=== PATIENT | male | born 1955 | race Caucasian/White ===

== ENCOUNTER 2020-11-15 21:17 | Emergency (ER) | payer OTHER ==
[2020-11-15 22:23] LABS: BLOOD UREA NITROGEN,BUN 13 mg/dL (7.0-18.0); CARBON DIOXIDE,CO2 24.4 mmol/L (21.0-32.0); CHLORIDE,CL 105 mmol/L (98-107); GLUCOSE RANDOM 114 mg/dL (74-106); POTASSIUM,K 3.9 mmol/L (3.5-5.1); SODIUM,NA 140 mmol/L (136-148)
--- NOTE | 2020-11-15 22:40 | EDM.PDOC ---
ED HPI GENERAL MEDICAL PROBLEM - General Chief Complaint: Lower Extremity Injury/Pain Stated Complaint: LT LEG PAIN FROM KNEE DOWN Time Seen by Provider: 11/15/20 22:01 Source of Information: Reports: Patient - History of Present Illness INITIAL COMMENTS - FREE TEXT/NARRATIVE: History of present illness: 65-year-old male presenting with left leg pain. Woke him up from sleep at 5 AM yesterday. Pain has been ongoing since that time. Pain located primarily in the calf and radiates down the leg. He does report he also feels numbness in the left foot and that the whole leg is cool to touch. No prior history of the same. He does travel a lot for work and just flew from [place] back here several days ago. No chest pain or difficulty breathing. Review of systems: As per history of present illness and below otherwise all systems reviewed and negative. Past medical history: As per history of present illness and as reviewed below otherwise noncontributory. Surgical history: As per history of present illness and as reviewed below otherwise noncontributory. Social history: No reported history of drug or alcohol abuse. Daily tobacco Family history: As per history of present illness and as reviewed below otherwise noncontributory. Physical exam: GEN: no acute distress, well appearing HEENT: Atraumatic, normocephalic, mucous membranes moist, Neck: supple, nontender, trachea midline. Lungs: No respiratory distress. Heart: RRR Abdomen: Nondistended Back: Full range of motion Extremities: Atraumatic. Calf tenderness. Pain in the calf worse with plantar and dorsiflexion of the foot. Distal pulses are intact. The patient reports decreased sensation over the left foot plantar surface although does feel sharp touch well. Decreased sensation to soft touch. Mildly diminished cap refill time over the left toes. No pallor of the skin of the left lower extremity. Appears pink and same color as the right lower extremity. The right lower extremity is unremarkable and warm to touch. Neuro: Awake, alert, oriented. Neuro Exam nonfocal. Mild decreased soft touch sensation to the left plantar surface of the foot Skin: dry, no lesions Diagnostics: Labs, CT angio left lower extremity Preliminary Report: Atherosclerotic changes of the distal abdominal aorta. Moderate stenosis of the left common iliac artery. Occlusion of the left external iliac artery from its origin to its midpoint. Severe narrowing of the left BI ARCHITECT with thread-like lumen. Mild diffuse narrowing of the left SFA throughout the upper and mid thigh, with occlusion of the distal SFA and popliteal artery to the level of the calf trifurcation. Weakly reconstituted flow in the left calf trifurcation arteries, with minimal flow in the anterior tibial artery at the level of the ankle. Therapeutics: Heparin, bolus and drip MDM: Leg pain. Cool to touch when compared to the other although distal pulses intact. CTA shows diffuse atherosclerotic disease and several areas of stenosis including occlusion distally though there does appear to be some reconstitution. While in the emergency department the patient had a change in his physical exam, on a reassessment the patient had decreased pulses were previously he had both palpable and dopplerable pulses on arrival here, on reassessment the patient had neither dopplerable or palpable pulses. The patient was already undergoing transfer for vascular surgery evaluation, however he was upgraded to rapid transport/air ambulance due to concern for acute limb ischemia. Vascular surgeon updated immediately on the patient's change in status. Impression: Lower extremity arterial stenosis/occlusion, limb ischemia Plan: [] Definitive disposition and diagnosis as appropriate pending reevaluation and review of above. 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 L calf Pain Score (Numeric/FACES): 4 - Related Data Allergies Allergy/AdvReac Type Severity Reaction Status Date / Time No Known Allergies Allergy Verified 11/15/20 21:32 Home Meds: Home Meds Ibuprofen 400 mg PO ASDIRECTED PRN 11/15/20 [History] Past Medical History HEENT History: Reports: None Cardiovascular History: Reports: None Respiratory History: Reports: None Gastrointestinal History: Reports: None Genitourinary History: Reports: None Musculoskeletal History: Reports: None Neurological History: Reports: None Psychiatric History: Reports: None Endocrine/Metabolic History: Reports: None Hematologic History: Reports: None Immunologic History: Reports: None Oncologic (Cancer) History: Reports: None Dermatologic History: Reports: None - Infectious Disease History Infectious Disease History: Reports: Chicken Pox, Measles - Past Surgical History Head Surgeries/Procedures: Reports: None HEENT Surgical History: Reports: Other (See Below) Other HEENT Surgeries/Procedures: bone graph to L eye orbital after injury in 1979 Social & Family History - Family History Family Medical History: No Pertinent Family History - Tobacco Use Tobacco Use Status *Q: Current Every Day Tobacco User Years of Tobacco use: 10 Packs/Tins Daily: 0.5 - Caffeine Use Caffeine Use: Reports: Coffee, Soda - Recreational Drug Use Recreational Drug Use: Yes Drug Use in Last 12 Months: Yes Recreational Drug Type: Reports: Marijuana/Hashish Recreational Drug Use Frequency: Rarely Review of Systems - Review of Systems Review Of Systems: See Below (See dictation) ED EXAM, GENERAL - Physical Exam Exam: See Below (See dictation) Course - Vital Signs Last Recorded V/S: Last Vital Signs Temp 97.6 F 11/16/20 02:24 Pulse 54 L 11/16/20 02:24 Resp 18 11/16/20 02:24 BP 171/84 H 11/16/20 02:24 Pulse Ox 97 11/16/20 02:24 - Orders/Labs/Meds Labs: Laboratory Tests 11/15/20 11/15/20 11/15/20 Range/Units 21:54 21:54 21:54 WBC 9.33 (4.0-11.0) K/uL RBC 4.30 L (4.50-5.90) M/uL Hgb 15.5 (13.0-17.0) g/dL Hct 43.9 (38.0-50.0) % MCV 102.1 H (80.0-98.0) fL MCH 36.0 H (27.0-32.0) pg MCHC 35.3 (31.0-37.0) g/dL RDW Std Deviation 52.5 (28.0-62.0) fl RDW Coeff of Won 14 (11.0-15.0) % Plt Count 263 (150-400) K/uL MPV 10.10 (7.40-12.00) fL Neut % (Auto) 59.1 (48.0-80.0) % Lymph % (Auto) 24.5 (16.0-40.0) % Motley % (Auto) 12.4 (0.0-15.0) % Eos % (Auto) 3.6 (0.0-7.0) % Baso % (Auto) 0.4 (0.0-1.5) % Neut # (Auto) 5.5 (1.4-5.7) K/uL Lymph # (Auto) 2.3 (0.6-2.4) K/uL Motley # (Auto) 1.2 H (0.0-0.8) K/uL Eos # (Auto) 0.3 (0.0-0.7) K/uL Baso # (Auto) 0.0 (0.0-0.1) K/uL Nucleated RBC % 0.0 /100WBC Nucleated RBCs # 0 K/uL INR 1.02 APTT (18.6-31.3) SEC Sodium 140 (136-148) mmol/L Potassium 3.9 (3.5-5.1) mmol/L Chloride 105 (98-107) mmol/L Carbon Dioxide 24.4 (21.0-32.0) mmol/L BUN 13 (7.0-18.0) mg/dL Creatinine 1.0 (0.8-1.3) mg/dL Est Cr Clr Drug Dosing 82.99 mL/min Estimated GFR (MDRD) > 60.0 ml/min Glucose 114 H (74-106) mg/dL Calcium 8.6 (8.5-10.1) mg/dL Total Bilirubin 0.2 (0.2-1.0) mg/dL AST 45 H (15-37) IU/L ALT 21 (14-63) IU/L Alkaline Phosphatase 86 (46-116) U/L Total Protein 7.4 (6.4-8.2) g/dL Albumin 3.8 (3.4-5.0) g/dL Globulin 3.6 (2.6-4.0) g/dL Albumin/Globulin Ratio 1.1 (0.9-1.6) 11/16/20 Range/Units 02:25 WBC (4.0-11.0) K/uL RBC (4.50-5.90) M/uL Hgb (13.0-17.0) g/dL Hct (38.0-50.0) % MCV (80.0-98.0) fL MCH (27.0-32.0) pg MCHC (31.0-37.0) g/dL RDW Std Deviation (28.0-62.0) fl RDW Coeff of Won (11.0-15.0) % Plt Count (150-400) K/uL MPV (7.40-12.00) fL Neut % (Auto) (48.0-80.0) % Lymph % (Auto) (16.0-40.0) % Motley % (Auto) (0.0-15.0) % Eos % (Auto) (0.0-7.0) % Baso % (Auto) (0.0-1.5) % Neut # (Auto) (1.4-5.7) K/uL Lymph # (Auto) (0.6-2.4) K/uL Motley # (Auto) (0.0-0.8) K/uL Eos # (Auto) (0.0-0.7) K/uL Baso # (Auto) (0.0-0.1) K/uL Nucleated RBC % /100WBC Nucleated RBCs # K/uL INR APTT 23.7 (18.6-31.3) SEC Sodium (136-148) mmol/L Potassium (3.5-5.1) mmol/L Chloride (98-107) mmol/L Carbon Dioxide (21.0-32.0) mmol/L BUN (7.0-18.0) mg/dL Creatinine (0.8-1.3) mg/dL Est Cr Clr Drug Dosing mL/min Estimated GFR (MDRD) ml/min Glucose (74-106) mg/dL Calcium (8.5-10.1) mg/dL Total Bilirubin (0.2-1.0) mg/dL AST (15-37) IU/L ALT (14-63) IU/L Alkaline Phosphatase (46-116) U/L Total Protein (6.4-8.2) g/dL Albumin (3.4-5.0) g/dL Globulin (2.6-4.0) g/dL Albumin/Globulin Ratio (0.9-1.6) Meds: Medications Discontinued Medications Generic Name Dose Route Start Last Admin Trade Name Freq PRN Reason Stop Dose Admin Heparin Sodium (Porcine) 5,000 units 11/16/20 01:58 11/16/20 02:41 Heparin Sodium 5,000 Units/Ml Vial IVPUSH 11/16/20 01:59 Not Given ONETIME ONE Heparin Sodium (Porcine) 9,000 units 11/16/20 02:22 11/16/20 02:35 Heparin Sodium 5,000 Units/Ml Vial IVPUSH 11/16/20 02:23 9,000 units .BOLUS ONE Administration Heparin Sodium (Porcine) Confirm 11/16/20 02:30 11/16/20 02:41 Heparin Sodium 5,000 Units/Ml Vial Administered 11/16/20 02:31 Not Given Dose 5,000 units .ROUTE .STK-MED ONE Heparin Sodium/Sodium Chloride 500 mls @ 21.772 mls/hr 11/16/20 02:00 Heparin 25,000 Units In 1/2 Ns 500 Ml IV TITRATE SHAYNE Protocol 12 UNITS/KG/HR Heparin Sodium/Sodium Chloride 500 mls @ 32.76 mls/hr 11/16/20 02:30 11/16/20 02:34 Heparin 25,000 Units In 1/2 Ns 500 Ml IV 18 units/kg/hr TITRATE SHAYNE 32.76 mls/hr Administration Protocol 18 UNITS/KG/HR Iopamidol 120 ml 11/15/20 23:41 11/15/20 23:42 Iopamidol 755 Mg/Ml 500 Ml Multipack Bottle IVPUSH 11/15/20 23:42 120 ml ONETIME STA Administration - Re-Assessments/Exams Free Text/Narrative Re-Assessment/Exam: 11/16/20 00:[address] angio findings with radiologist. There is decreased flow/occlusion with some reconstitution of the distal flow of the arteries though thready/weak in the calf. As the patient has decreased capillary refill and slightly extremity, will discuss with vascular surgery. 11/16/20 00:54 Results discussed with the patient. Discussed recommendation for transfer for vascular surgery evaluation. The first the patient was very hesitant and was requesting if he could follow-up once he goes back to [place] next week. Discussed strong recommendation against this due to poor distal flow though he does have distal pulses. Patient would like to discuss this with his brother. 11/16/20 01:42 The patient has had a chance to discuss this with his brother and his and agrees to transfer at this time. Will call [facility] for vascular surgery input. 11/16/20 01:[address] Sawyer, vascular surgery at [facility]. He accepts the case. Case also discussed with Dr. Matthews in the ER who also accepts the case. 11/16/20 02:04 The patient was reexamined. The patient now has no palpable pulses and Doppler was checked and no dopplerable pulses below the popliteal artery, Dr. Whitfield the vascular surgeon as well as Dr. Rolle were updated on this. Will start the patient on heparin bolus and drip. Per discussion with Dr. Whitfield, start 100 unit/kg bolus and 20 unit/kg drip. The patient will now be transferred via air due to emergent condition. Departure - Departure Time of Disposition: 01:50 Disposition: DC/Tfer to [facility] 02 Clinical Impression: Pain of left lower extremity due to ischemia - Discharge Information Referrals: PCP,Not In Area [Primary Care Provider] - Forms: ED Department Discharge Critical Care Note - Critical Care Note Total Time (mins): 45 Comments: Limb ischemia, air transfer/emergent transfer Sepsis Event Note (ED) - Evaluation Sepsis Screening Result: No Definite Risk - Focused Exam Vital Signs: Vital Signs Temp Pulse Resp BP BP Pulse Ox 11/16/20 02:24 97.6 F 54 L 18 171/84 H 97 11/16/20 02:05 47 L 171/84 H 97 11/16/20 01:29 51 L 170/93 H 96 11/16/20 00:29 48 L 148/79 H 95 11/16/20 00:00 54 L 95 11/15/20 23:00 55 L 96 11/15/20 22:29 62 194/104 H 97 11/15/20 22:00 66 96 11/15/20 21:26 98.9 F 62 16 187/93 H 216/90 H 97
[2020-11-15] MEDS ORDERED: Iopamidol 755 MG/ML 500 ML Multipack Bottle IVPUSH STA (23:41)
--- NOTE | 2020-11-16 00:27 | CT ---
CLINICAL INFORMATION: 65-year-old with left lower extremity pain which is cool to the touch. Concern for possible underlying arterial occlusion. TECHNIQUE: CT angiography of the left lower extremity was performed with intravenous contrast. No enteric contrast was administered and therefore the study has decreased sensitivity for detection of bowel pathology. 3D and/or MIP angiographic reconstructions were performed on a separate independent workstation with concurrent supervision of the image post processing in order to further delineate the angiographic anatomy for accurate interpretation. Contrast: 120 mL of Isovue 370 intravenous contrast was injected uneventfully prior to image acquisition. Radiation Dose Estimate (Total Exam DLP): 1047.9 mGy-cm. COMPARISON: Appended elbow FINDINGS: CT Angiography Findings: Abdominal aorta: Distal infrarenal abdominal aortic aneurysm measuring up to 3.1 cm with diffuse atheromatous disease. LEFT lower extremity: Common iliac artery: Focal moderate stenosis due to atheromatous plaque. Internal iliac artery: Patent. External iliac artery: Proximal to mid occlusion with distal reconstitution. Common femoral artery: Subtotal occlusion. Deep femoral artery: Patent. Superficial femoral artery: Distally occluded. Popliteal artery: Occluded. Anterior tibial artery: Occluded at its origin and proximal reconstitution. Diffusely diseased but appears patent at the level of the ankle. Peroneal artery: Occluded at its origin proximal reconstitution. Occluded at the mid calf. Posterior tibial artery: Occluded. Visceral Findings: No acute pathology in the visualized portions of the pelvis. IMPRESSION: 1. LEFT lower extremity: -Proximal and mid external iliac artery occlusion. -Subtotal Common femoral artery occlusion. -Distal SFA and popliteal artery occlusion. -Proximal reconstitution of the anterior tibial artery with diffuse disease throughout but appears patent to the level of the ankle. -Peroneal artery proximally reconstituted and occluded at the mid calf. -Posterior tibial artery is occluded. 2. Distal infrarenal abdominal aortic aneurysm measuring 3.1 cm. Please note that all CT scans at this facility use dose modulation, iterative reconstruction, and/or weight-based dosing when appropriate to reduce radiation dose to as low as reasonably achievable. Dictated by Natan Aguirre MD @ 11/16/2020 10:56:[address] Natan Aguirre @ Nov 16 2020 10:56AM
[2020-11-16] MEDS ORDERED: Heparin Sodium 5,000 Units/ML Vial IVPUSH ONE ×2 (01:58→02:22)
[2020-11-16] MEDS ORDERED: Heparin Sodium/0.45% NaCl 500 ML IV SCH ×2 (02:00→02:30)
[2020-11-16] MEDS ORDERED: Heparin Sodium 5,000 Units/ML Vial ONE (02:30)
== END 2020-11-16 02:49 ==
LOC: MW.ED 21:17
DX: M79.605 Pain in left leg (principal); I99.8 Other disorder of circulatory system; Z72.0 Tobacco use
CPT/HCPCS: 36415; 73706; 80053; 85025; 85610; 85730; 96374; 99291; J1644; Q9967